=== PATIENT | male | born 2000 | race Caucasian/White ===

== ENCOUNTER → 2024-01-26 | Outpatient (CLI) | payer OTHER, SELFPAY ==
--- NOTE | 2024-01-26 16:59 | RAD_ITS ---
STUDY: X-RAY - LEFT HAND REASON FOR EXAM: Male, 23 years old. Sprain TECHNIQUE: 3 view(s) of the hand. COMPARISON: None. FINDINGS: Normal radiocarpal articulation. Normal distal radioulnar joint. Normal visualized carpal bones. Normal carpal articulations Normal carpometacarpal articulation of the thumb. Normal second through fifth carpometacarpal joints. Normal metacarpi. Normal metacarpophalangeal joint of the thumb. Normal interphalangeal joint of the thumb. Normal proximal and distal phalanges of the thumb. Normal metacarpophalangeal joints of the second through fifth fingers. Normal proximal and distal interphalangeal joints of the second through fifth fingers. Normal phalanges of the second through fifth fingers. The soft tissue structures are unremarkable. RAD/Hand Min 3 Views IMPRESSION: Normal x-ray examination of the hand. Electronically Signed: Clement Ross MD at 15:35 EDT ,
== END | disposition home or self-care (01) ==
PROVIDERS: Referring Provider Physician Assistant Surgical; Visit Provider Physician Assistant Surgical
DX: T14.8XXA Other injury of unspecified body region, initial encounter (principal)
CPT/HCPCS: 73130

== ENCOUNTER → 2024-03-06 | Outpatient (CLI) | payer OTHER, SELFPAY ==
--- NOTE | 2024-03-06 13:22 | RAD_ITS ---
STUDY: X-RAY - LEFT HAND, ATTENTION SECOND FINGER REASON FOR EXAM: Male, 23 years old. pain injury to left 2nd digit about a month ago at work TECHNIQUE: 3 view(s) of the finger were obtained. COMPARISON: Left hand x-ray dated January 26, 2024 FINDINGS: Old chip fracture with displaced tiny fragment noted at the base and volar surface of the middle phalanx of the second finger. No visualized acute fractures. Mild to moderate soft tissue swelling is present. Normal metacarpal head. Normal metacarpophalangeal joint. Normal proximal phalanx. Normal distal phalanx. Normal proximal interphalangeal joint. Normal distal interphalangeal joint. RAD/Finger(s) Min 2 Views IMPRESSION: 1. Second digit = Old chip fracture with displaced tiny fragment noted at the base and volar surface of the middle phalanx of the second finger. No visualized acute fractures. Mild to moderate soft tissue swelling is present Electronically Signed: Wenceslao Sevilla MD at 14:18 EDT ,
== END | disposition home or self-care (01) ==
LOC: MTRAD 13:22
PROVIDERS: Referring Provider Physician Assistant; Visit Provider Physician Assistant
DX: S63.611A Unspecified sprain of left index finger, initial encounter (principal); X58.XXXA Exposure to other specified factors, initial encounter
CPT/HCPCS: 73140

== ENCOUNTER 2024-03-14 13:00 | Outpatient (RCR) | payer OTHER, SELFPAY ==
--- NOTE | 2024-03-12 14:36 | HP.OTEVAL_ITS ---
Patient's Visit Information Visit Information Visit Information: MIC ROSEN is a 23 year old M, referred to Occupational Therapy by DILIP Pak, with a diagnosis of left IF PIPJ abrasion/joint swelling. Date of Evaluation: 03/12/24 Occupational Therapist: Yadira Walters, KATHRYN/Carlos, CHT Subjective Subjective: This 23 year old male was seen for OT eval with dx of left IF swelling w/ pain a PIP J of left IF, Abrasion of left IF. Pt states while working at [employer] on 2023 he had his left IF caught/Pinched in machine. Pt states he was loading the brush heads , while loading the hopper the belt pinched left IF. pinched for quick second enough his left finger went numb, ( machine shut off) pt states he was sent to ROM MP: right 0/65 left 0/70 PIP: right 0/105 left 0/90 DIP: right 0/ 63 left 0/65 ROM Comments: pt demo with a decreased left PIPJ ROM Strength Lead Customer Service Representative: right 85# left 40# Lateral Pinch: right 24# left 20# Tripod Pinch: right 14# left 18# Edema PIP: right 7.3 left 7.8 Sensation Sensation Comments: denies - states numbness went away quickly after he had finger pinched Quick DASH-Disab of Arm,Shoulder& Hand Quick DASH Score: 18.3325 Goals Goal:: pt will demo a increase in left sweetbread trimmer strength by 30# to return pt to PLOF with ADLs and work tasks by dc Goal:: pt will demo a increase in left IF PIP flexion by 10* or greater to increase pts end range of motion by d.c Goal:: pt will demo a reduction in left IF PIPJ : by .3cm demo a return and improve circulation by d/c Goal:: pt will demo understanding of joint protection sparkle. to limit lig. stress when performing work tasks by d/c Rehabilitation General Assessment: pt arrives 6 weeks and 4 days post injury date, demo with edema of left IF and limited left PIP ROM and weakness. This limits pts performance of ADLs and work tasks at this time. Pt would benefit from skilled OT services 2-3x week for 4 weeks to return pt to his PLOF. Today therapist ed. pt on AROM and edema mtg. pt demo understanding and agree to POC. Rehabilitation Potential: Good Anticipated Interventions Anticipated Interventions: A/AAROM/PROM, Strengthening, Edema Control, Triggerpoint Release, Joint Protection/Energy Conservation, Ergonomic Education, Education re Diagnosis and Home Program Visit Plan Frequency: 2-3x /Week Duration: 4 Weeks TEXT: Thank you for the opportunity to evaluate your patient. For Medicare and Medicare HMO plans, please review the plan of care and approve it. It will need to be FAXED BACK to us at [phone] for Medicare purposes. Please let me know if there are questions or concerns regarding this plan of care. Physician Signature: Date:
--- NOTE | 2024-03-23 11:34 | HP.OT.NRP ---
Patient Information Patient Information: MIC ROSEN was seen in my office for initial evaluation on 03/12/24. The following Plan of Care was established for this patient: POC Established Initial Frequency: 2-3x /Week Initial Duration: 4 Weeks Plan: AROM/AAROM/PROM pain management strengthening to tolerance Anticipated Interventions Anticipated Interventions: A/AAROM/PROM, Strengthening, Edema Control, Triggerpoint Release, Joint Protection/Energy Conservation, Ergonomic Education, Education re Diagnosis and Home Program Last Seen Last Seen: This patient was last seen in our office 03/14/24. Pertinent comments regarding their Occupational therapy will appear below: pt was seen for 2 OT sessions- He No showed 4 apts in a row and now has been D/C due to no show policy- was was called and therapist left message pt was removed off schedule due to no show apts. At this point I will be discontinuing this patient from occupational therapy. I would be happy to see this patient again in the future if found appropriate by the physician. Thank you! Yadira Walters, OTR/L, CHT
== END 2024-03-23 10:33 | disposition home or self-care (01) ==
LOC: OT 13:00
PROVIDERS: Referring Provider Physician Assistant; Visit Provider Physician Assistant
DX: S60.411D Abrasion of left index finger, subsequent encounter (principal)
CPT/HCPCS: 97110; 97140; 97166